=== PATIENT | female | born 1980 | race Caucasian/White ===

== ENCOUNTER 2021-07-04 08:44 | Emergency (ER) | payer MEDICAID, SELFPAY ==
--- NOTE | ~2021-07-04 | XR_ITS ---
EXAMINATION: XR ANKLE, RIGHT CLINICAL INFORMATION: Pain COMPARISON: None TECHNIQUE: AP, lateral, and mortise views of the right ankle. FINDINGS: There is orthopedic hardware with lateral plate and screws in the distal fibula, medial plate and screws in the medial distal tibia and posterior plate and screws in the posterior lateral distal tibia. Orthopedic hardware appears intact. There is an old or healing fracture of the anterior distal tibia appreciated on the lateral view. There is adjacent bony callus formation. No other fracture is seen. There is diffuse soft tissue swelling about the ankle. The bones are osteopenic. XR/XR ankle RT min 3V IMPRESSION: Extensive orthopedic hardware in the ankle. No acute fracture or evidence of hardware failure. Old or healing fracture of the anterior distal tibia with bony callus formation. Osteopenia and diffuse soft tissue swelling. Comparison with outside exams recommended.
[2021-07-04 08:54] VITALS: BP 148/72; PULSE 87; RESP 18; TEMP 36.8; O2SAT 99; BMI 25.7
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
== END 2021-07-04 10:16 | disposition home or self-care (01) ==
PROVIDERS: Emergency Provider Emergency Medicine; PCP Nurse Practitioner Family
DX: S93.401A Sprain of unspecified ligament of right ankle, initial encounter (principal); W19.XXXA Unspecified fall, initial encounter; Y93.9 Activity, unspecified; Y92.512 Supermarket, store or market as the place of occurrence of the external cause; Y99.9 Unspecified external cause status
CPT/HCPCS: 73610; 99283

== ENCOUNTER 2021-08-16 10:28 | Emergency (ER) | payer MEDICAID, SELFPAY ==
--- NOTE | ~2021-08-16 | XR_ITS ---
EXAMINATION: XR CHEST CLINICAL INFORMATION: Chest pain COMPARISON: 04/28/2017 TECHNIQUE: 2 views of the chest were obtained. FINDINGS: The lungs are well expanded. There is no focal consolidation, edema, or effusion. No pneumothorax. The cardiomediastinal silhouette is within normal limits. No acute osseous abnormality. XR/XR chest 2V IMPRESSION: Clear lungs.
--- NOTE | 2021-08-16 10:30 | ECG_ITS ---
Test Reason : cp Blood Pressure : / mmHG Vent. Rate : 087 BPM Atrial Rate : 087 BPM P-R Int : 134 ms QRS Dur : 080 ms QT Int : 378 ms P-R-T Axes : 060 032 024 degrees QTc Int : 454 ms Normal sinus rhythm Normal ECG When compared with ECG of 28-APR-2017 13:02, No significant change was found Referred By: Generic ED Physician Electronically Signed By:Barber Poon
[2021-08-16 10:40] VITALS: BP 137/88; PULSE 85; RESP 22; TEMP 36.6; O2SAT 100
[2021-08-16 10:46] VITALS: BP 146/87; PULSE 91; RESP 18; TEMP 36.1; O2SAT 100; BMI 32.5
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
[2021-08-16] MEDS: Cyclobenzaprine HCl 10 MG TABLET PO (12:01)
[2021-08-16] MEDS: Lidocaine 4 % Patch ADH..PATCH 1 PATCH TRANSDERMA (12:02)
--- NOTE | 2021-08-16 12:04 | PC.NURSE ---
Pt received from triage: Pt aox4, anxious but agreeable Pt given ordered medications for pain. Pt NSR with pain upon deep breaths. Lungs unlabored and clear. Abd rounded with present bowel sounds.
[2021-08-16 12:47] VITALS: BP 136/76; PULSE 84; RESP 18; O2SAT 100
[2021-08-16 13:16] LABS: COVID-19 Test Negative (Negative); IDNOW Serial# 9DD0AD1C
[2021-08-16 13:27] LABS: Troponin-I High Sensitivity < 3.5 ng/L (<3.5-17.0)
== END 2021-08-16 14:00 | disposition home or self-care (01) ==
PROVIDERS: Emergency Provider Emergency Medicine; PCP Nurse Practitioner Family
DX: R07.89 Other chest pain (principal); Z20.822 Contact with and (suspected) exposure to COVID-19; Z72.89 Other problems related to lifestyle; Z63.0 Problems in relationship with spouse or partner
CPT/HCPCS: 36415; 71046; 84484; 87635; 93005; 99283; 99284

== ENCOUNTER 2021-11-20 23:00 | Inpatient (IN) | payer MEDICAID, SELFPAY ==
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
--- NOTE | 2021-11-20 23:10 | ECG_ITS ---
Test Reason : SEIZURE Blood Pressure : / mmHG Vent. Rate : 092 BPM Atrial Rate : 092 BPM P-R Int : 152 ms QRS Dur : 086 ms QT Int : 376 ms P-R-T Axes : 055 022 023 degrees QTc Int : 464 ms Normal sinus rhythm Normal ECG No significant changes when compared with the previous EKG of 16 aug 2021 Referred By: Virginia Paul Electronically Signed By:SVETA RAYO
[2021-11-20 23:11] LABS: Glucose, Whole Blood 98 mg/dL (60-115)
[2021-11-20 23:16] VITALS: BMI 27.4
[2021-11-20 23:17] LABS: MANUAL DIFF FLAG NO
[2021-11-20 23:19] LABS: Basophils Absolute Auto 0.1 X10*3/uL (0.0-0.2); Basophils Percent Auto 0.3 % (0-2); Eosinophils Percent Auto 0.2 % (0-4); Hematocrit 40.8 % (37.0-47.0); Imm Gran Abs Auto 0.09 X10*3/uL (0.00-0.03); Imm Gran Pct Auto 0.5 % (0.0-0.4); Lymphocytes Absolute Auto 4.7 X10*3/uL (1.2-4.9); Lymphocytes Percent Auto 27.2 % (20-40); Mean Corpuscular HGB Conc 31.9 g/dl (31.0-35.0); Mean Corpuscular Hemoglobin 25.8 pg (27.0-33.0); Mean Corpuscular Volume 81.1 fL (80.0-98.0); Mean Platelet Volume 9.7 fL (9.4-12.3); Monocytes Percent Auto 5.5 % (2-11); Neutrophils Absolute Auto 11.4 x10*3/uL (2.0-8.3); Neutrophils Percent Auto 66.3 % (45-73); Platelet Count 469 X10*3/uL (160-400); Red Blood Count 5.03 X10*6/uL (4.20-5.50); Red Cell Distribution Width 18.6 % (11.0-16.0); White Blood Count 17.2 X10*3/uL (4.8-10.8)
[2021-11-20] MEDS: LORazepam 2 MG/ML VIAL 4 MG IM (23:21)
[2021-11-20 23:23] LABS: Prothrombin Time 11.5 SEC (9.9-13.0)
[2021-11-20] MEDS: levETIRAcetam in NaCl (iso-os) 1,500 MG/100 ML PIGGYBACK 400 MG IV (23:23)
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
[2021-11-20] MEDS: LORazepam 2 MG/ML VIAL IVPUSH (23:26)
[2021-11-20 23:29] LABS: Lactic Acid 3.9 mmol/L (0.5-2.0)
[2021-11-20 23:35] LABS: Ethanol 192 mg/dL
[2021-11-20 23:40] LABS: Acetaminophen LAB < 1 mcg/mL (<30); Alanine Aminotransferase 17 U/L (0-31); Albumin Level 4.5 g/dL (3.5-5.0); Alkaline Phosphatase 119 U/L (39-117); Anion Gap 19 (12-20); Aspartate Amino Transferase 16 U/L (5-31); Bilirubin Direct < 0.2 mg/dL (0.0-0.5); Bilirubin Total < 0.2 mg/dL (0.0-1.0); Blood Urea Nitrogen 10 mg/dL (9-16); Calcium 9.3 mg/dL (8.4-10.2); Carbon Dioxide 17 mmol/L (22-29); Chloride 111 mmol/L (96-108); Estimated Glomerular Filt Rate > 60; Glucose Random 88 mg/dL (60-115); Lipase 22 U/L (8-78); Magnesium 2.5 mg/dL (1.6-2.6); Potassium 4.1 mmol/L (3.3-5.1); Salicylate < 5.0 mg/dL (15-30); Sodium 143 mmol/L (135-145); Total Protein 7.8 g/dL (6.5-8.0); Troponin-I High Sensitivity < 3.5 ng/L (<3.5-17.0)
[2021-11-20 23:43] LABS: HCG Quantitative < 2 mIU/mL
[2021-11-21] VITALS (10 sets, daily range): BP systolic 95–122; BP diastolic 42–78; PULSE 93–100; RESP 14–22; TEMP 36.5–37.2; O2SAT 96–100
[2021-11-21] MEDS: Ketamine HCl 500 MG/5 ML VIAL 50 MG IVPUSH (00:21)
--- NOTE | 2021-11-21 00:21 | PC.NURSE ---
I attempted to scan Ketamine into MAR unsuccessully and the MAR repeatedly tells me that this medication is not ordered on this patient The medication dose and strength are all double and triple checked and are correct.
[2021-11-21] MEDS: 0.9 % Sodium Chloride 1,000 ML 999 ML IVCONT (00:24)
[2021-11-21] MEDS: iohexoL 350 MG/ML 100 ML INFUS..BTL 85 ML IV (00:41)
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
[2021-11-21 01:15] LABS: Reflex Lactate? Lactic Acid Added
[2021-11-21 01:25] LABS: Ammonia 43 umol/L (13-55)
[2021-11-21 01:36] LABS: COVID-19 Test Negative (Negative); IDNOW Serial# 16C4AD1C
--- NOTE | 2021-11-21 02:05 | PC.NURSE ---
pt straight cath 500cc and and ua collected and sent.
[2021-11-21 02:13] LABS: Appearance Urine CLEAR; Color Urine YELLOW; Glucose Urine UA NEG (NEG); Leukocyte Esterase Urine NEG (NEG); Nitrite Urine NEG (NEG); PH 5.5 (5.0-8.0); UACC Culture Trigger NO; Urine Blood 1+ (NEG); Urine Ketones NEG (NEG); Urine Protein NEG (NEG-TRACE)
[2021-11-21 02:21] LABS: WBC Urine 0 /HPF (0-4)
[2021-11-21 02:22] LABS: Mucus Urine TRACE /LPF; Squamous Epithelial Cell Urine TRACE /LPF
[2021-11-21 02:41] LABS: Amphetamine Screen Urine Not Detected (Not Detect); Barbiturates, Urine Not Detected (Not Detect); Benzodiazepines Screen Urine Not Detected (Not Detect); Cannabinoid Screen Urine POSITIVE (Not Detect); Cocaine Screen Urine POSITIVE (Not Detect); Fentanyl, urine POSITIVE (Not Detect); Opiate Screen Urine Not Detected (Not Detect); Phencyclidine Screen Urine Not Detected (Not Detect)
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
[2021-11-21 03:47] LABS: Reflex Lactate? 2 Y
[2021-11-21 04:22] LABS: ~Lactic Acid-LAB USE ONLY 2.5 mmol/L (0.5-2.0)
[2021-11-21 04:26] LABS: Hematocrit 37.2 % (37.0-47.0); Hemoglobin 11.5 g/dl (12.0-16.0); Mean Corpuscular HGB Conc 30.9 g/dl (31.0-35.0); Mean Corpuscular Hemoglobin 25.7 pg (27.0-33.0); Mean Corpuscular Volume 83.2 fL (80.0-98.0); Mean Platelet Volume 9.7 fL (9.4-12.3); Platelet Count 374 X10*3/uL (160-400); Red Blood Count 4.47 X10*6/uL (4.20-5.50); Red Cell Distribution Width 18.7 % (11.0-16.0); White Blood Count 14.4 X10*3/uL (4.8-10.8)
--- NOTE | 2021-11-21 04:35 | PC.NURSE ---
I attempted to correctly document procedural sedation flowsheet, but I may have documented it incorrectly and attempts at editing it are unsuccessful. The pt was administered Ketamine 50mg IVP and was adequately sedated in order to tolerate CT. This sedation lasted approximately 20 minutes and at that time the pt began to wake and make eye cotnact and be verbally appropriate with staff, She remains this way.
[2021-11-21 04:40] LABS: ~Lactic Acid-LAB USE ONLY 2.7 mmol/L (0.5-2.0)
[2021-11-21 04:43] LABS: Anion Gap 16 (12-20); Blood Urea Nitrogen 9 mg/dL (9-16); Calcium 8.5 mg/dL (8.4-10.2); Carbon Dioxide 17 mmol/L (22-29); Chloride 113 mmol/L (96-108); Estimated Glomerular Filt Rate > 60; Glucose Random 65 mg/dL (60-115); Sodium 142 mmol/L (135-145)
--- NOTE | 2021-11-21 04:58 | PC.NURSE ---
Due to difficulty infusing 1st L bolus of NS, the first 1L has just completed at this time. pt's venous lactate remains elevated. MD Givens aware of lactate and 1L bolus, request maintenance fluids be initiated at this time, specifically states no further fluid bolus needed.
[2021-11-21] MEDS: Dextrose 5 % and 0.45 % NaCl 1,000 ML 100 ML IVCONT ×2 (05:06→11:58)
[2021-11-21] MEDS: LORazepam 2 MG/ML VIAL 1 MG IVPUSH ×4 (06:10→19:39)
[2021-11-21] MEDS: OLANZapine 10 MG VIAL 5 MG IM (06:24)
--- NOTE | 2021-11-21 06:36 | PC.NURSE ---
Pt, who has been sleeping and waking intermittently since receiving kwetamine, has no woken and is extremely agitated, asking about her dog and insisting that she needs to leave to get her dog. She also admits to active Si with a plan (I want to hang myself or take all of my medicines). Chon notified, 1:1 ordered/in place. pt was administered 1mg Ativan IVp and 5mg IM Zyprexa at this time.
[2021-11-21 07:18] LABS: Glucose, Whole Blood 68 mg/dL (60-115)
--- NOTE | 2021-11-21 07:59 | PC.NURSE ---
PT UP TO COMMODE, LARGE LOOSE BM. EATING BKFST. 1:1 SITTER MAINTAINED
[2021-11-21] MEDS: levETIRAcetam in NaCl (iso-os) 1,000 MG/100 ML PIGGYBACK 400 MG IV (10:23)
[2021-11-21] MEDS: Acetaminophen 325 MG TABLET 650 MG PO (10:23)
[2021-11-21] MEDS: Heparin Sodium,Porcine 5,000 UNIT/ML VIAL 5000 UNIT SUBCUT ×2 (10:23→17:31)
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
--- NOTE | 2021-11-21 11:11 | PHA.MEDREC ---
Pharmacy Consult ? Medication Reconciliation Pharmacy has completed the medication reconciliation. Was able to get a medication list from [facility]. Zaira Oconnor, RominaD
--- NOTE | 2021-11-21 11:25 | MHC.CM.PN ---
pt is a sect 12 will be followed by psych services
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
--- NOTE | 2021-11-21 12:42 | PC.NURSE ---
At 12:10 patient had 30-45 second witnessed seizure while in her bed. Safety/oxygenation maintained. 1mg Ativan given IV PRN. Patient combative with staff prior to and post seizure, hospitalist notified by charge, PRN orders adjusted. Patient is currently resting comfortably with sitter at bedside.
--- NOTE | 2021-11-21 15:47 | PC.NURSE ---
Patient awoke confused, pulling at IVs and hall monitor, escalated to yelling, swinging, spitting at sitter. Patient climbed OOB, extremely unsteady on feet. Assisted back to bed by security/sitter/this RN. 1mg ativan given IV, URGENT CARE NURSE PRACTITIONER Tha contacted regarding continued issues with this patient's behavior, will review orders. Patient reoriented to situation once able, now safely back in bed with sitter at bedside.
--- NOTE | 2021-11-21 17:01 | MHC.CARE ---
CARE Team responds to pt's room upon receiving a consult request for Confusion and combative. Upon arrival, pt is observed in bed with a sitter within arm's reach. Pt was unarousable and had been medicated. Consult could not be conducted. CARE Team is available when pt is able to participate in the consult.
[2021-11-21] MEDS: traZODone HCL 50 MG TABLET 150 MG PO (19:38)
[2021-11-21] MEDS: levETIRAcetam 250 MG TABLET 750 MG PO (19:38)
[2021-11-21] MEDS: QUEtiapine Fumarate 100 MG TABLET PO (19:39)
[2021-11-21] MEDS: 0.9 % Sodium Chloride Flush 3 ML SYRINGE IVFLUSH (19:43)
[2021-11-22 03:15] VITALS: BP 130/58; PULSE 90; RESP 20; TEMP 36.3; O2SAT 98
[2021-11-22 06:19] LABS: Hematocrit 33.7 % (37.0-47.0); Hemoglobin 10.4 g/dl (12.0-16.0); Mean Corpuscular HGB Conc 30.9 g/dl (31.0-35.0); Mean Corpuscular Hemoglobin 25.2 pg (27.0-33.0); Mean Corpuscular Volume 81.6 fL (80.0-98.0); Mean Platelet Volume 10.1 fL (9.4-12.3); Platelet Count 324 X10*3/uL (160-400); Red Blood Count 4.13 X10*6/uL (4.20-5.50); Red Cell Distribution Width 18.5 % (11.0-16.0)
[2021-11-22 06:42] LABS: Anion Gap 10 (12-20); Blood Urea Nitrogen 15 mg/dL (9-16); Carbon Dioxide 22 mmol/L (22-29); Chloride 109 mmol/L (96-108); Estimated Glomerular Filt Rate > 60; Glucose Random 98 mg/dL (60-115); Potassium 4.3 mmol/L (3.3-5.1); Sodium 137 mmol/L (135-145)
[2021-11-22 07:56] VITALS: BP 108/59; PULSE 96; RESP 20; TEMP 35.9; O2SAT 100
[2021-11-22] MEDS: QUEtiapine Fumarate 100 MG TABLET PO ×3 (08:00→20:56)
[2021-11-22] MEDS: levETIRAcetam 250 MG TABLET 750 MG PO ×2 (08:01→20:55)
[2021-11-22] MEDS: 0.9 % Sodium Chloride Flush 3 ML SYRINGE IVFLUSH ×3 (08:01→20:56)
[2021-11-22] MEDS: Heparin Sodium,Porcine 5,000 UNIT/ML VIAL 5000 UNIT SUBCUT ×2 (11:21→16:16)
[2021-11-22 11:25] VITALS: BP 107/63; PULSE 89; RESP 20; TEMP 36.6; O2SAT 99
[2021-11-22 16:00] VITALS: BP 118/55; PULSE 89; RESP 17; TEMP 36.7; O2SAT 100
[2021-11-22] MEDS: Ketorolac Tromethamine 15 MG/ML VIAL IVPUSH (16:15)
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
--- NOTE | 2021-11-22 19:36 | PC.NURSE ---
Nursing Pourer Bull Ladle as this underwriter solicitation director, questioned patient in the presence of P.O. and shift nurse Maryjane to verify her denial of S.I. at this time. Patient indeed denied any desire to kill herself.
[2021-11-22 20:00] VITALS: BP 98/51; PULSE 72; RESP 19; TEMP 36.6; O2SAT 95
[2021-11-22] MEDS: traZODone HCL 50 MG TABLET 150 MG PO (20:55)
[2021-11-22] MEDS: oxyCODONE HCl Immed Release 5 MG TABLET PO (20:56)
[2021-11-22 23:55] VITALS: BP 100/51; PULSE 73; RESP 16; TEMP 35.8; O2SAT 96
--- NOTE | 2021-11-23 00:21 | PM.EVENT ---
Event Note Date of Service: 11/23/21 Event Note: SI: pt expressed Suicidal ideation around 12Am on 11/23/20. one on one observation. suicidal precautions.
[2021-11-23] MEDS: Acetaminophen 325 MG TABLET 650 MG PO (02:55)
[2021-11-23 03:24] VITALS: BP 108/52; PULSE 70; RESP 18; TEMP 37; O2SAT 98
[2021-11-23 07:07] VITALS: BP 118/59; PULSE 75; RESP 20; TEMP 37.1; O2SAT 96
[2021-11-23] MEDS: 0.9 % Sodium Chloride Flush 3 ML SYRINGE IVFLUSH (08:04)
[2021-11-23] MEDS: levETIRAcetam 250 MG TABLET 750 MG PO (08:04)
[2021-11-23] MEDS: QUEtiapine Fumarate 100 MG TABLET PO ×2 (08:05)
[2021-11-23] MEDS: Ketorolac Tromethamine 15 MG/ML VIAL IVPUSH (08:05)
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
[2021-11-23 11:16] VITALS: BP 145/60; PULSE 70; RESP 20; TEMP 36.6; O2SAT 99
[2021-11-23] MEDS: LORazepam 1 MG TABLET PO (12:11)
[2021-11-23] MEDS: Heparin Sodium,Porcine 5,000 UNIT/ML VIAL 5000 UNIT SUBCUT (12:11)
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
[2021-11-23 15:10] VITALS: BP 116/62; PULSE 94; RESP 20; TEMP 36.4; O2SAT 98
--- NOTE | 2021-11-23 16:04 | MHC.CM.PN ---
Female 41 DX SZ She is discharged today. She will transport via cab [facility]. She will obtain her belongings. A 2nd cab voucher has been provided. She will use it for transportation to her mothers home. [address] is [address]. The two Vouchers provided were approved by the [employer].
--- NOTE | 2021-11-23 21:57 | PM.EVENT ---
Event Note Date of Service: 11/23/21 Event Note: positive blood cultures: Patient blood cultures are growing Gram-positive cocci in clusters. final results pending I called the patient on her cell phone available in the charts couple times, not reachable, left voice message with call back number. I also tried to reach patient's mother - again not reachable, left voice message with a call-back number. Will also notify the discharging hospitalist.
== END 2021-11-23 18:41 | disposition home or self-care (01) | DRG 53 ==
LOC: HO.ED 11-21 01:19 → HO.EDOVER 11-21 01:22 → HO.IMC 11-21 15:50
PROVIDERS: Nurse Practitioner Acute Care; Admitting Provider Hospitalist; Emergency Provider Emergency Medicine; Visit Provider Physician Assistant Medical
DX: G40.909 Epilepsy, unspecified, not intractable, without status epilepticus (principal); R45.851 Suicidal ideations; R78.81 Bacteremia; T74.11XA Adult physical abuse, confirmed, initial encounter; Y07.03 Male partner, perpetrator of maltreatment and neglect; F43.10 Post-traumatic stress disorder, unspecified; Z20.822 Contact with and (suspected) exposure to COVID-19; Z79.1 Long term (current) use of non-steroidal anti-inflammatories (NSAID); Z79.899 Other long term (current) drug therapy
CPT/HCPCS: 36415; 70450; 71260; 72125; 74177; 80048; 80076; 80143; 80179; 80307; 81001; 82077; 82140; 82550; 82947; 83605; 83690; 83735; 84484; 84702; 85025; 85027; 85610; 87040; 87147; 87205; 87635; 93005; 96361; 96374; 96375; 96376; 99285; J1885; J1953; J2060; Q9967